=== PATIENT | male | born 1965 | race Caucasian/White ===

== ENCOUNTER 2017-06-07 11:32 | Emergency (ER) | payer OTHER ==
[~2017-06-07] VITALS: Ht 188 cm; Wt 123.0 kg
[2017-06-07 11:42] VITALS: BP 127/86; PULSE 68; RESP 18; TEMP 98.5; O2SAT 96
--- NOTE | 2017-06-07 11:53 | PD ---
HPI Chief Complaint: Musculoskeletal Complaint Time Seen by Provider: 11:50 Travel History International Travel<30 days: No Contact w/Intl Traveler<30days: No Traveled to known affect area: No History of Present Illness HPI 51-year-old male presents to the emergency department for evaluation of right ankle, right Achilles tendon pain. Patient states it started 4 days ago. He cannot recall specific injury. Patient states he had this problem in the past and felt an orthopedist and was told that his Achilles tendon was pulling away. He was placed in a walking boot. He did not have to undergo surgery. He states that pain he had back then. Patient denies any fevers or chills. No other injury or complaint. Exacerbating factors movement and walking. Alleviating factor is rest. The pain is in the right Achilles tendon and radiates to the heel. PFSH Past Medical History Medical History: Denies Significant Hx Influenza Vaccination: No Past Surgical History Abdominal Surgery: Yes (HERNIORRHAPHY) Genitourinary Surgery: Yes (KIDNEY STONES) Social History Alcohol Use: Yes (COUPLE DRINKS PER WEEK) Tobacco Use: No Substance Use: No Allergies-Medications (Allergen,Severity, Reaction): Coded Allergies: No Known Allergies (Unverified , 06/07/17) Reported Meds & Prescriptions Reported Meds & Active Scripts Active No Active Prescriptions or Reported Medications Review of Systems Except as stated in HPI: all other systems reviewed are Neg Physical Exam Narrative GENERAL: Well-nourished, well-developed male patient, afebrile. SKIN: Focused skin assessment warm/dry. HEAD: Normocephalic. Atraumatic. EYES: No scleral icterus. No injection or drainage. NECK: Supple, trachea midline. No JVD or lymphadenopathy. CARDIOVASCULAR: Regular rate and rhythm without murmurs, gallops, or rubs. Right pedal pulse is 2+. RESPIRATORY: Breath sounds equal bilaterally. No accessory muscle use. Lungs sounds are clear to auscultation. GASTROINTESTINAL: Abdomen soft, non-tender, nondistended. MUSCULOSKELETAL: No cyanosis, or edema. Patient has tenderness over Achilles tendon and right posterior heel. Negative Logan's test with no evidence of Achilles tendon rupture. BACK: Nontender without obvious deformity. No CVA tenderness. Data Data Last Documented VS Vital Signs Date Time Temp Pulse Resp B/P (MAP) Pulse Ox O2 Delivery O2 Flow Rate FiO2 06/07/17 11:42 98.5 68 18 127/86 (100) 96 Orders Orders Ankle, Complete ([id number]) (06/07/17 ) Foot, Complete ([id number]) (06/07/17 ) Crutches (06/07/17 13:13) Splint Or Brace Apply/Monitor (06/07/17 13:19) MDM Medical Decision Making Medical Screen Exam Complete: Yes Emergency Medical Condition: Yes Medical Record Reviewed: Yes Differential Diagnosis Ankle sprain versus fracture versus dislocation versus tendinitis versus rupture Narrative Course 51-year-old male presents to the emergency department for evaluation of right ankle pain that started 4 days ago. He states he has had in the past and was told that his Achilles tendon was pulling away. No evidence of Achilles tendon rupture. This test on exam. Patient declines pain medication at this time. X- ray of the right ankle and foot are ordered and pending. X-ray of the right ankle is negative for fracture or dislocation. X-ray of the right foot is negative for fracture dislocation. Unfortunately, we do not have a walking boot available at this facility. I discussed Pk bandage with the patient, he is concerned about his Achilles tendon. Therefore, I will place the patient in a posterior short leg splint and he is to follow-up with orthopedist. He verbalizes agreement and understanding. The patient was discharged in stable condition with instructions, including return instructions and follow up instructions. Diagnosis Primary Impression: Right ankle pain Qualified Codes: M25.571 - Pain in right ankle and joints of right foot Referrals: Primary Care Physician call for appointment Patient Instructions: Ankle Sprain (ED), General Instructions Additional Instructions: Wear splint and use crutches. Elevate. Ice for 20 minutes 4-5 times daily. Follow-up with orthopedist. [id number]-[id number] ibuprofen every 6-8 hours as needed for pain. Return to the emergency department for any acute worsening of symptoms. Med/Other Pt SpecificInfo: No Change to Meds Scripts No Active Prescriptions or Reported Meds Disposition: 01 DISCHARGE HOME Condition: Stable Sudha Broderick JANA Jun 07, 2017 11:53
--- NOTE | 2017-06-07 13:00 | RADRPT ---
EXAM DATE/TIME: 06/07/2017 12:08 [facility] COMPARISON: No previous studies available for comparison. INDICATIONS : Right posterior ankle pain, no known injury. MEDICAL HISTORY : None. SURGICAL HISTORY : None. ENCOUNTER: Initial ACUITY: 4 - 6 days PAIN SCORE: 6/10 LOCATION: Right posterior ankle FINDINGS: Three view exam was performed of the right ankle. The bony structures are in normal alignment. No e vidence of fracture, dislocation, or soft tissue swelling. The ankle mortise is intact. No radiopaq ue foreign bodies are seen. Bony mineralization is normal. CONCLUSION: Negative for fracture or dislocation. Follow up in 7-10 days is suggested if symptoms persist. Chaitanya Jay MD FACR on June 07, 2017 at 12:58 Board Certified Radiologist. This report was verified electronically.
--- NOTE | 2017-06-07 13:01 | RADRPT ---
EXAM DATE/TIME: 06/07/2017 12:08 [facility] COMPARISON: No previous studies available for comparison. INDICATIONS : Right foot heel pain, no known injury. MEDICAL HISTORY : None. SURGICAL HISTORY : None. ENCOUNTER: Initial ACUITY: 4 - 6 days PAIN SCORE: 6/10 LOCATION: Right foot heel FINDINGS: There is soft tissue swelling with the distal fifth metatarsal without fracture. Correlation is sugg ested to exclude inflammatory process. CONCLUSION: Negative for fracture or dislocation. Soft tissue swelling distal fifth metatarsal. Chaitanya Jay MD FACR on June 07, 2017 at 12:59 Board Certified Radiologist. This report was verified electronically.
== END 2017-06-07 13:41 | disposition home or self-care (01) ==
LOC: PHEFT 11:32
DX: M25.571 Pain in right ankle and joints of right foot (principal)
CPT/HCPCS: 29515; 73610; 73630; 99283; E0113